=== PATIENT | male | born 1965 ===

== ENCOUNTER 2019-02-02 10:04 | Emergency (ER) | payer OTHER ==
[~2019-02-02] VITALS: Ht 167.6 cm; Wt 95.0 kg
[2019-02-02 10:15] VITALS: BP 139/84
== END 2019-02-02 11:53 | disposition home or self-care (01) ==
LOC: ER 10:05
DX: S93.602A Unspecified sprain of left foot, initial encounter (principal); I10 Essential (primary) hypertension; E78.00 Pure hypercholesterolemia, unspecified; V89.2XXA Person injured in unspecified motor-vehicle accident, traffic, initial encounter; Y93.89 Activity, other specified; Y92.488 Other paved roadways as the place of occurrence of the external cause; Y99.8 Other external cause status
CPT/HCPCS: 73610; 73630; 99283